=== PATIENT | male | born 1950 | race Caucasian/White ===

== ENCOUNTER 2025-07-08 16:14 | Inpatient (IN) | payer MEDICARE, OTHER ==
[2025-07-08 17:07] LABS: Hematocrit 27.5 % (42.0-52.0); Hemoglobin 9.2 g/dL (14.0-18.0); Mean Corpuscular Hemoglobin 28.7 pg (27.0-31.0); Mean Corpuscular Volume 85.7 fL (78.0-98.0); Platelet Count 184 10x3/uL (130-400); Red Blood Cell (RBC) Count 3.21 mill/uL (4.70-6.10); White Blood Cell (WBC) Count 20.86 10x3/uL (4.8-10.8)
[2025-07-08 17:09] LABS: ALT (SGPT) 15 U/L (Less than 45); AST (SGOT) 19 U/L (11-34); Albumin 2.8 g/dL (3.1-4.5); Alkaline Phosphatase 251 U/L (40-110); Anion Gap 18 mmol/L (10-20); BUN (Urea Nitrogen) 23 mg/dL (8.4-25.7); Bilirubin, Total 0.3 mg/dL (0.3-1.2); Calc. Creatinine Clearance 0 mL/min (70-130); Calcium 7.8 mg/dL (7.8-10.44); Carbon Dioxide 17 mmol/L (23-31); Chloride 104 mmol/L (98-107); Globulin 2.8 g/dL (2.4-3.5); Glucose 154 mg/dL (83-110); Potassium 2.7 mmol/L (3.5-5.1); Sodium 136 mmol/L (136-145)
[2025-07-08 17:19] LABS: Anisocytosis SLIGHT = 6-15 cells HPF (0-5); Macrocytosis SLIGHT = 6-15 cells HPF (0-5); Nucleated RBC (Manual Ct) 1 % (0); Ovalocytes SLIGHT = 2-5 cells HPF (0-1); Platelet Adequacy Comment Platelets Normal; Polychromasia SLIGHT = 2-3 cells HPF (0-2); Schistocytes SLIGHT = 2-5 cells HPF (0-1); Smudge Cells 2.6 %; Toxic Granulation MODERATE
[2025-07-08] MEDS ORDERED: Cefepime 2 GM VIAL ONE (17:39)
[2025-07-08] MEDS ORDERED: Acetaminophen 500 MG TAB ONE (17:39)
[2025-07-08] MEDS ORDERED: VANCOMYCIN 2 GRAM/400 ML BAG ONE (18:36)
[2025-07-08] MEDS ORDERED: Ibuprofen 800 MG TAB ONE (18:51)
[2025-07-08] MEDS ORDERED: Guaifenesin DM 100-10/5 ML UDCUP PO PRN (20:31)
[2025-07-08] MEDS ORDERED: Acetaminophen 325 MG TAB PO PRN (20:31)
[2025-07-08] MEDS ORDERED: Calcium Carbonate 500 MG ChewTAB PO PRN (20:31)
[2025-07-08] MEDS: Vancomycin 1 GM in Premix 1 BAG IVPB SCH (21:48)
[2025-07-08] MEDS: Potassium Bicarbonate/Cit Ac 20 MEQ TAB PO SCH (22:08)
[2025-07-08 23:01] VITALS: BMI 27.0
[2025-07-08] MEDS: Apixaban 5 MG TAB PO SCH (23:05)
[2025-07-08 23:16] LABS: Bacteria/HPF 1+ HPF (None Seen); CAUTI Indications for Culture Fever or rigors; Glucose, Urine (Dipstick) Normal (Negative); Leukocyte Negative Leu/uL (Negative); Protein, Urine (Dipstick) 50 mg/dL (Neg-Trace); RBC/HPF 0-3 HPF (0-3); Specific Gravity, Urine 1.015 (1.002-1.036)
[2025-07-08 23:17] LABS: Urine Culture Reflex Yes Yes
[2025-07-09 04:51] LABS: Hematocrit 27.8 % (42.0-52.0); Hemoglobin 9.3 g/dL (14.0-18.0); Mean Corpuscular Hemoglobin 29.1 pg (27.0-31.0); Mean Corpuscular Volume 86.9 fL (78.0-98.0); Platelet Count 191 10x3/uL (130-400); Red Blood Cell (RBC) Count 3.20 mill/uL (4.70-6.10); White Blood Cell (WBC) Count 29.93 10x3/uL (4.8-10.8)
[2025-07-09 05:02] LABS: Vancomycin, Random 20.4 ug/mL (See Comment)
[2025-07-09 05:08] LABS: Anion Gap 17 mmol/L (10-20); BUN (Urea Nitrogen) 29 mg/dL (8.4-25.7); Calc. Creatinine Clearance 36 mL/min (70-130); Calcium 7.6 mg/dL (7.8-10.44); Carbon Dioxide 20 mmol/L (23-31); Chloride 105 mmol/L (98-107); Glucose 180 mg/dL (83-110); Potassium 4.4 mmol/L (3.5-5.1); Sodium 138 mmol/L (136-145)
[2025-07-09 06:25] LABS: Macrocytosis SLIGHT = 6-15 cells HPF (0-5); Platelet Adequacy Comment Platelets Normal; RBC Morphology Within Normal Limits; Smudge Cells 3.9 %; Toxic Granulation SLIGHT
[2025-07-09] MEDS ORDERED: Electrolyte Replacement Protocol 1 EACH FS SCH (07:45)
[2025-07-09] MEDS ORDERED: PHOS-NAK 1 PKT PACK PO PRN (08:00)
[2025-07-09] MEDS ORDERED: Potassium Chloride 20 MEQ in Premix 1 BAG IVPB PRN (08:00)
[2025-07-09] MEDS: Pantoprazole 40 MG DR.TAB PO SCH (09:00)
[2025-07-09] MEDS: Mupirocin 1 GM TUBE NASAL DECOLONIZATION NASAL SCH (09:01)
[2025-07-09] MEDS: Apixaban 5 MG TAB PO SCH (09:05)
[2025-07-09 12:49] VITALS: BMI 27.0
[2025-07-09] MEDS: Apixaban 2.5 MG TAB PO SCH (19:51)
[2025-07-10 04:41] LABS: Hematocrit 23.6 % (42.0-52.0); Hemoglobin 7.8 g/dL (14.0-18.0); Mean Corpuscular Hemoglobin 28.7 pg (27.0-31.0); Mean Corpuscular Volume 86.8 fL (78.0-98.0); Platelet Count 148 10x3/uL (130-400); Red Blood Cell (RBC) Count 2.72 mill/uL (4.70-6.10); White Blood Cell (WBC) Count 24.30 10x3/uL (4.8-10.8)
[2025-07-10 04:44] LABS: Anion Gap 15 mmol/L (10-20); BUN (Urea Nitrogen) 43 mg/dL (8.4-25.7); Calc. Creatinine Clearance 38 mL/min (70-130); Calcium 7.2 mg/dL (7.8-10.44); Carbon Dioxide 21 mmol/L (23-31); Chloride 106 mmol/L (98-107); Glucose 153 mg/dL (83-110); Magnesium 1.2 mg/dL (1.6-2.6); Potassium 4.3 mmol/L (3.5-5.1); Sodium 138 mmol/L (136-145)
[2025-07-10] MEDS: Magnesium 2 GM/50 ML(in water) 2 GM in Premix 1 BAG IVPB PRN (06:24)
[2025-07-10 06:43] LABS: Anisocytosis SLIGHT = 6-15 cells HPF (0-5); Platelet Adequacy Comment Platelets Decreased; Polychromasia SLIGHT = 2-3 cells HPF (0-2); Smudge Cells 0.9 %; Toxic Granulation SLIGHT
[2025-07-10] MEDS ORDERED: Magnesium Sulfate 4 GM in Sodium Chloride 0.9% 250 ML 250 ML IVPB SCH (07:45)
[2025-07-10] MEDS: Magnesium Sulfate In Water 4 GM in Premix 1 BAG IVPB SCH (10:42)
[2025-07-10 13:23] LABS: Magnesium 2.1 mg/dL (1.6-2.6)
[2025-07-11 06:02] LABS: Hematocrit 27.2 % (42.0-52.0); Hemoglobin 9.1 g/dL (14.0-18.0); Mean Corpuscular Hemoglobin 28.9 pg (27.0-31.0); Mean Corpuscular Volume 86.3 fL (78.0-98.0); Platelet Count 114 10x3/uL (130-400); Red Blood Cell (RBC) Count 3.15 mill/uL (4.70-6.10); White Blood Cell (WBC) Count 10.80 10x3/uL (4.8-10.8)
[2025-07-11 06:18] LABS: Vancomycin, Random 16.4 ug/mL (See Comment)
[2025-07-11 06:19] LABS: Anion Gap 12 mmol/L (10-20); BUN (Urea Nitrogen) 39 mg/dL (8.4-25.7); Calc. Creatinine Clearance 60 mL/min (70-130); Calcium 7.5 mg/dL (7.8-10.44); Carbon Dioxide 23 mmol/L (23-31); Chloride 107 mmol/L (98-107); Glucose 107 mg/dL (83-110); Magnesium 1.7 mg/dL (1.6-2.6); Potassium 3.6 mmol/L (3.5-5.1); Sodium 138 mmol/L (136-145)
[2025-07-11 06:36] LABS: Burr Cells SLIGHT = 2-5 cells HPF (0-1); Platelet Adequacy Comment Platelets Decreased; Polychromasia SLIGHT = 2-3 cells HPF (0-2); Smudge Cells 4.0 %; Toxic Granulation SLIGHT
[2025-07-11 10:50] VITALS: BP 128/72; TEMP 98.2
[2025-07-11 10:53] LABS: Magnesium 1.8 mg/dL (1.6-2.6)
== END 2025-07-11 10:53 | disposition home or self-care (01) | DRG 683 ==
LOC: ERS 16:14 → MSONC 19:48
PROVIDERS: ADMIT Internal Medicine; ATTEND Family Medicine
DX: N17.9 Acute kidney failure, unspecified (principal); C25.9 Malignant neoplasm of pancreas, unspecified; E87.20 Acidosis, unspecified; R65.10 Systemic inflammatory response syndrome (SIRS) of non-infectious origin without acute organ dysfunction; D84.9 Immunodeficiency, unspecified; E86.0 Dehydration; K52.9 Noninfective gastroenteritis and colitis, unspecified; Z85.07 Personal history of malignant neoplasm of pancreas; I10 Essential (primary) hypertension; N40.0 Benign prostatic hyperplasia without lower urinary tract symptoms; Z90.49 Acquired absence of other specified parts of digestive tract; Z98.49 Cataract extraction status, unspecified eye; E83.42 Hypomagnesemia; Z92.21 Personal history of antineoplastic chemotherapy; Z87.891 Personal history of nicotine dependence; Z85.038 Personal history of other malignant neoplasm of large intestine; Z85.21 Personal history of malignant neoplasm of larynx; I48.91 Unspecified atrial fibrillation; E87.6 Hypokalemia
CPT/HCPCS: 36415; 71045; 80048; 80053; 80202; 81001; 83605; 83735; 84100; 84484; 85025; 87086; 87428; 93005; J0692; J1642; J3373; J3375; J3475; J7050; J7120

== ENCOUNTER 2025-07-24 12:04 | Inpatient (IN) | payer MEDICARE, OTHER ==
[2025-07-24] MEDS ORDERED: Ondansetron PF 4 MG/2 ML Vial ONE (13:16)
[2025-07-24 13:28] LABS: #Basophils 0.04 10x3/uL (0.0-0.2); #Eosinophils 0.18 10x3/uL (0.0-0.7); #Monocytes 1.02 10x3/uL (0.11-0.59); #Neutrophils 5.35 10x3/uL (1.40-6.50); %Basophils 0.5 % (0.0-1.0); %Eosinophils 2.4 % (0.0-10.0); %Lymphocytes 10.9 % (21.0-51.0); %Monocytes 13.6 % (0.0-10.0); %Neutrophils 71.4 % (42.0-75.0); Hematocrit 24.6 % (42.0-52.0); Hemoglobin 8.1 g/dL (14.0-18.0); Mean Corpuscular Hemoglobin 28.3 pg (27.0-31.0); Mean Corpuscular Volume 86.0 fL (78.0-98.0); Platelet Count 191 10x3/uL (130-400); Red Blood Cell (RBC) Count 2.86 mill/uL (4.70-6.10); White Blood Cell (WBC) Count 7.50 10x3/uL (4.8-10.8)
[2025-07-24 14:33] LABS: ALT (SGPT) 21 U/L (Less than 45); AST (SGOT) 17 U/L (11-34); Albumin 2.4 g/dL (3.1-4.5); Alkaline Phosphatase 112 U/L (40-110); Anion Gap 12 mmol/L (10-20); BUN (Urea Nitrogen) 31 mg/dL (8.4-25.7); Bilirubin, Total 0.5 mg/dL (0.3-1.2); Calc. Creatinine Clearance 0 mL/min (70-130); Calcium 7.6 mg/dL (7.8-10.44); Carbon Dioxide 20 mmol/L (23-31); Chloride 108 mmol/L (98-107); Globulin 3.0 g/dL (2.4-3.5); Glucose 108 mg/dL (83-110); Potassium 3.4 mmol/L (3.5-5.1); Sodium 137 mmol/L (136-145)
[2025-07-24 14:33] LABS: Bacteria/HPF None Seen HPF (None Seen); CAUTI Indications for Culture Fever or rigors; Glucose, Urine (Dipstick) Normal (Negative); Leukocyte 25 Leu/uL (Negative); Protein, Urine (Dipstick) 100 mg/dL (Neg-Trace); RBC/HPF None Seen HPF (0-3); Specific Gravity, Urine 1.024 (1.002-1.036); WBC/HPF None Seen HPF (0-3)
[2025-07-24 14:35] LABS: Urine Culture Reflex No No
[2025-07-24] MEDS ORDERED: Ondansetron PF 4 MG/2 ML Vial IVP PRN (18:09)
[2025-07-24] MEDS ORDERED: Senokot S 8.6-50 MG TAB PO PRN (18:09)
[2025-07-24] MEDS ORDERED: Acetaminophen 500 MG TAB ONE (18:14)
[2025-07-24] MEDS ORDERED: Cefepime 2 GM VIAL ONE (18:14)
[2025-07-24] MEDS: VANCOMYCIN 1.75 GM/350 ML Premix BAG IVPB SCH (20:11)
[2025-07-24 20:35] VITALS: BMI 27.6
[2025-07-24] MEDS ORDERED: Vancomycin 1 GM in Premix 1 BAG IVPB SCH (21:00)
[2025-07-24] MEDS: Famotidine/PF 20 mg/2ml Vial SLOW IVP SCH (21:07)
[2025-07-25 04:07] LABS: #Basophils 0.04 10x3/uL (0.0-0.2); #Eosinophils 0.14 10x3/uL (0.0-0.7); #Monocytes 0.87 10x3/uL (0.11-0.59); #Neutrophils 6.62 10x3/uL (1.40-6.50); %Basophils 0.5 % (0.0-1.0); %Eosinophils 1.7 % (0.0-10.0); %Lymphocytes 6.1 % (21.0-51.0); %Monocytes 10.5 % (0.0-10.0); %Neutrophils 80.2 % (42.0-75.0); Hematocrit 24.0 % (42.0-52.0); Hemoglobin 7.5 g/dL (14.0-18.0); Mean Corpuscular Hemoglobin 28.1 pg (27.0-31.0); Mean Corpuscular Volume 89.9 fL (78.0-98.0); Platelet Count 153 10x3/uL (130-400); Red Blood Cell (RBC) Count 2.67 mill/uL (4.70-6.10); White Blood Cell (WBC) Count 8.25 10x3/uL (4.8-10.8)
[2025-07-25 04:30] LABS: Vancomycin, Random 22.2 ug/mL (See Comment)
[2025-07-25 04:32] LABS: ALT (SGPT) 17 U/L (Less than 45); AST (SGOT) 14 U/L (11-34); Albumin 2.1 g/dL (3.1-4.5); Alkaline Phosphatase 100 U/L (40-110); Anion Gap 12 mmol/L (10-20); BUN (Urea Nitrogen) 32 mg/dL (8.4-25.7); Bilirubin, Total 0.4 mg/dL (0.3-1.2); Calc. Creatinine Clearance 44 mL/min (70-130); Calcium 7.1 mg/dL (7.8-10.44); Carbon Dioxide 18 mmol/L (23-31); Chloride 110 mmol/L (98-107); Globulin 2.7 g/dL (2.4-3.5); Glucose 106 mg/dL (83-110); Potassium 3.9 mmol/L (3.5-5.1); Sodium 136 mmol/L (136-145)
[2025-07-25 05:01] LABS: Actual Bicarbonate (HCO3v) 17.8 mEq/L (22-28); Base Excess -6.4 mEq/L (-2.0 to +3.0); Calcium, Ionized (venous) 1.03 mmol/L (1.16-1.32); Chloride (VBG) 107 mmol/L (98-106); Hematocrit-VBG 25 % (42.0-52.0); Hemoglobin (Hb) 8.5 g/dL (12.6-17.4); Potassium (VBG) 3.93 mmol/L (3.70-5.30); Sodium 135 mmol/L (133-146)
[2025-07-25] MEDS: Acetaminophen 325 MG TAB PO PRN (08:57)
[2025-07-25] MEDS: Vancomycin 1 GM in Premix 1 BAG IVPB SCH (17:41)
[2025-07-25] MEDS: Mupirocin 1 GM TUBE TP SCH (20:09)
[2025-07-25] MEDS: Apixaban 2.5 MG TAB PO SCH (20:10)
[2025-07-25] MEDS ORDERED: Vancomycin 1.25 GM / NS 250 ML VIAL-2-BAG IVPB SCH (21:00)
[2025-07-26 09:38] LABS: #Basophils 0.05 10x3/uL (0.0-0.2); #Eosinophils 0.26 10x3/uL (0.0-0.7); #Monocytes 0.88 10x3/uL (0.11-0.59); #Neutrophils 4.79 10x3/uL (1.40-6.50); %Basophils 0.8 % (0.0-1.0); %Eosinophils 4.0 % (0.0-10.0); %Lymphocytes 7.3 % (21.0-51.0); %Monocytes 13.4 % (0.0-10.0); %Neutrophils 72.8 % (42.0-75.0); Hematocrit 21.9 % (42.0-52.0); Hemoglobin 7.1 g/dL (14.0-18.0); Mean Corpuscular Hemoglobin 29.0 pg (27.0-31.0); Mean Corpuscular Volume 89.4 fL (78.0-98.0); Platelet Count 114 10x3/uL (130-400); Red Blood Cell (RBC) Count 2.45 mill/uL (4.70-6.10); White Blood Cell (WBC) Count 6.57 10x3/uL (4.8-10.8)
[2025-07-26 10:22] LABS: Anion Gap 10 mmol/L (10-20); BUN (Urea Nitrogen) 41 mg/dL (8.4-25.7); Calc. Creatinine Clearance 29 mL/min (70-130); Calcium 7.2 mg/dL (7.8-10.44); Carbon Dioxide 21 mmol/L (23-31); Chloride 109 mmol/L (98-107); Glucose 126 mg/dL (83-110); Potassium 3.6 mmol/L (3.5-5.1); Sodium 136 mmol/L (136-145)
[2025-07-27 04:11] LABS: #Basophils 0.05 10x3/uL (0.0-0.2); #Eosinophils 0.31 10x3/uL (0.0-0.7); #Monocytes 0.67 10x3/uL (0.11-0.59); #Neutrophils 4.13 10x3/uL (1.40-6.50); %Basophils 0.8 % (0.0-1.0); %Eosinophils 5.2 % (0.0-10.0); %Lymphocytes 12.0 % (21.0-51.0); %Monocytes 11.2 % (0.0-10.0); %Neutrophils 69.0 % (42.0-75.0); Hematocrit 20.3 % (42.0-52.0); Hemoglobin 6.5 g/dL (14.0-18.0); Mean Corpuscular Hemoglobin 28.1 pg (27.0-31.0); Mean Corpuscular Volume 87.9 fL (78.0-98.0); Platelet Count 111 10x3/uL (130-400); Red Blood Cell (RBC) Count 2.31 mill/uL (4.70-6.10); White Blood Cell (WBC) Count 5.99 10x3/uL (4.8-10.8)
[2025-07-27 04:19] LABS: Anion Gap 13 mmol/L (10-20); BUN (Urea Nitrogen) 44 mg/dL (8.4-25.7); Calc. Creatinine Clearance 27 mL/min (70-130); Calcium 7.3 mg/dL (7.8-10.44); Carbon Dioxide 18 mmol/L (23-31); Chloride 110 mmol/L (98-107); Glucose 109 mg/dL (83-110); Potassium 3.5 mmol/L (3.5-5.1); Sodium 137 mmol/L (136-145)
[2025-07-27] MEDS: Famotidine/PF 20 mg/2ml Vial SLOW IVP SCH (09:16)
[2025-07-27 15:39] LABS: Protein, Urine Random Quant 93.0 mg/dL (1-14)
[2025-07-27 18:43] LABS: Hematocrit 20.1 % (42.0-52.0); Hemoglobin 6.5 g/dL (14.0-18.0)
[2025-07-27] MEDS ORDERED: Albumin 25% 25 GM (100 mL) BOT IVPB SCH (21:00)
[2025-07-27 21:23] LABS: Actual Bicarbonate (HCO3v) 15.9 mEq/L (22-28); Base Excess -14.4 mEq/L (-2.0 to +3.0); Chloride (VBG) 105 mmol/L (98-106); Hematocrit-VBG 25 % (42.0-52.0); Hemoglobin (Hb) 8.6 g/dL (12.6-17.4); Sodium 132 mmol/L (133-146)
[2025-07-27 21:30] LABS: Hematocrit 23.0 % (42.0-52.0); Hemoglobin 7.7 g/dL (14.0-18.0)
[2025-07-27 22:02] LABS: ALT (SGPT) 12 U/L (Less than 45); AST (SGOT) 14 U/L (11-34); Albumin 1.9 g/dL (3.1-4.5); Alkaline Phosphatase 102 U/L (40-110); Anion Gap 13 mmol/L (10-20); BUN (Urea Nitrogen) 45 mg/dL (8.4-25.7); Bilirubin, Total 0.3 mg/dL (0.3-1.2); Calc. Creatinine Clearance 26 mL/min (70-130); Calcium 7.3 mg/dL (7.8-10.44); Carbon Dioxide 17 mmol/L (23-31); Chloride 110 mmol/L (98-107); Globulin 2.6 g/dL (2.4-3.5); Glucose 122 mg/dL (83-110); Potassium 3.6 mmol/L (3.5-5.1); Sodium 136 mmol/L (136-145)
[2025-07-28 04:42] LABS: #Basophils 0.09 10x3/uL (0.0-0.2); #Eosinophils 0.61 10x3/uL (0.0-0.7); #Monocytes 0.76 10x3/uL (0.11-0.59); #Neutrophils 4.79 10x3/uL (1.40-6.50); %Basophils 1.2 % (0.0-1.0); %Eosinophils 8.2 % (0.0-10.0); %Lymphocytes 12.6 % (21.0-51.0); %Monocytes 10.2 % (0.0-10.0); %Neutrophils 64.1 % (42.0-75.0); Hematocrit 21.9 % (42.0-52.0); Hemoglobin 7.1 g/dL (14.0-18.0); Mean Corpuscular Hemoglobin 28.2 pg (27.0-31.0); Mean Corpuscular Volume 86.9 fL (78.0-98.0); Platelet Count 116 10x3/uL (130-400); Red Blood Cell (RBC) Count 2.52 mill/uL (4.70-6.10); White Blood Cell (WBC) Count 7.47 10x3/uL (4.8-10.8)
[2025-07-28 04:55] LABS: Anion Gap 11 mmol/L (10-20); BUN (Urea Nitrogen) 42 mg/dL (8.4-25.7); Calc. Creatinine Clearance 26 mL/min (70-130); Calcium 7.2 mg/dL (7.8-10.44); Carbon Dioxide 23 mmol/L (23-31); Chloride 109 mmol/L (98-107); Glucose 163 mg/dL (83-110); Potassium 3.3 mmol/L (3.5-5.1); Sodium 140 mmol/L (136-145)
[2025-07-28 06:56] LABS: Actual Bicarbonate (HCO3v) 21.4 mEq/L (22-28); Base Excess -2.4 mEq/L (-2.0 to +3.0); Calcium, Ionized (venous) 1.01 mmol/L (1.16-1.32); Chloride (VBG) 109 mmol/L (98-106); Hematocrit-VBG 24 % (42.0-52.0); Hemoglobin (Hb) 8.3 g/dL (12.6-17.4); Potassium (VBG) 3.20 mmol/L (3.70-5.30); Sodium 137 mmol/L (133-146)
[2025-07-28] MEDS: Ciprofloxacin 500 MG TAB PO SCH (11:20)
[2025-07-28 15:00] LABS: Hematocrit 22.0 % (42.0-52.0); Hemoglobin 7.2 g/dL (14.0-18.0)
[2025-07-28] MEDS: EPOETIN ALFA-EPBX (ESRD) 10,000 UNITS/ML VIAL SC SCH (15:00)
[2025-07-29 04:43] LABS: #Basophils 0.10 10x3/uL (0.0-0.2); #Eosinophils 0.74 10x3/uL (0.0-0.7); #Monocytes 0.71 10x3/uL (0.11-0.59); #Neutrophils 4.90 10x3/uL (1.40-6.50); %Basophils 1.3 % (0.0-1.0); %Eosinophils 9.5 % (0.0-10.0); %Lymphocytes 13.0 % (21.0-51.0); %Monocytes 9.1 % (0.0-10.0); %Neutrophils 62.6 % (42.0-75.0); Hematocrit 23.1 % (42.0-52.0); Hemoglobin 7.4 g/dL (14.0-18.0); Mean Corpuscular Hemoglobin 28.1 pg (27.0-31.0); Mean Corpuscular Volume 87.8 fL (78.0-98.0); Platelet Count 122 10x3/uL (130-400); Red Blood Cell (RBC) Count 2.63 mill/uL (4.70-6.10); White Blood Cell (WBC) Count 7.82 10x3/uL (4.8-10.8)
[2025-07-29 05:01] LABS: Anion Gap 5 mmol/L (10-20); BUN (Urea Nitrogen) 40 mg/dL (8.4-25.7); Calc. Creatinine Clearance 30 mL/min (70-130); Calcium 7.1 mg/dL (7.8-10.44); Carbon Dioxide 22 mmol/L (23-31); Chloride 116 mmol/L (98-107); Glucose 96 mg/dL (83-110); Potassium 3.4 mmol/L (3.5-5.1); Sodium 140 mmol/L (136-145)
[2025-07-29 11:37] VITALS: BP 160/84; TEMP 98
== END 2025-07-29 11:35 | disposition home or self-care (01) | DRG 872 ==
LOC: ERS 12:04 → OBSVTOIN 18:10 → T4-B 18:10 → MSONC 20:25
PROVIDERS: ADMIT Family Medicine; ATTEND Family Medicine
PROC: 3E03329 Introduction of Other Anti-infective into Peripheral Vein, Percutaneous Approach (ICD-10-PCS; 2025-07-25)
PROC: 30233N1 Transfusion of Nonautologous Red Blood Cells into Peripheral Vein, Percutaneous Approach (ICD-10-PCS; principal; 2025-07-27)
DX: A41.9 Sepsis, unspecified organism (principal); C25.9 Malignant neoplasm of pancreas, unspecified; L03.115 Cellulitis of right lower limb; L03.116 Cellulitis of left lower limb; N17.9 Acute kidney failure, unspecified; E87.20 Acidosis, unspecified; N18.4 Chronic kidney disease, stage 4 (severe); E87.6 Hypokalemia; E86.0 Dehydration; I12.9 Hypertensive chronic kidney disease with stage 1 through stage 4 chronic kidney disease, or unspecified chronic kidney disease; C32.9 Malignant neoplasm of larynx, unspecified; N40.0 Benign prostatic hyperplasia without lower urinary tract symptoms; L27.0 Generalized skin eruption due to drugs and medicaments taken internally; T45.1X5A Adverse effect of antineoplastic and immunosuppressive drugs, initial encounter; D64.81 Anemia due to antineoplastic chemotherapy; Z98.890 Other specified postprocedural states; Z87.891 Personal history of nicotine dependence; Z79.01 Long term (current) use of anticoagulants; Z79.899 Other long term (current) drug therapy; Z90.49 Acquired absence of other specified parts of digestive tract; Z95.818 Presence of other cardiac implants and grafts; Z85.21 Personal history of malignant neoplasm of larynx; Z85.038 Personal history of other malignant neoplasm of large intestine
CPT/HCPCS: 36415; 36430; 71045; 76770; 80048; 80053; 80202; 81001; 82274; 82570; 82805; 83605; 84156; 85025; 86141; 86850; 86900; 86901; 87040; 87081; 87086; 87428; 93005; 94760; 96361; 96374; 96375; J0692; J1308; J1642; J2405; J3373; J3375; J7030; J7070; J7120; P9016; Q5105